=== PATIENT | female | born 1935 | race Asian ===

== ENCOUNTER → 2019-09-26 13:14 | Outpatient (CLI) | payer MEDICARE, OTHER, SELFPAY ==
--- NOTE | 2019-09-26 | DI.RAD.S_ITS ---
PROCEDURE: FL BARIUM SWALLOW W SPEECH INDICATIONS: Dysphagia, unspecified TECHNIQUE: Examination was conducted in conjunction with speech pathology per standard protocol. In the lateral projection, filming was performed of the patient swallowing. AP projection filming may also be performed with patient swallowing. COMPARISON: None. FINDINGS: Function: The oral preparatory phase appears normal, with proper containment. The subsequent oral propulsive phase, pharyngeal phase, and esophageal phase of swallowing also appear normal with all proffered substances. Flash laryngeal penetration with thin liquid barium consistencies. No aspiration identified.. Mild residue and vallecular pooling. There is delayed upper esophageal clearance Morphology: No cricopharyngeal bar is identified. No cervical esophageal webs. No Zenker's diverticulum. No strictures. IMPRESSION: Delayed upper esophageal clearance suggestive of dysmotility which could be better assessed with dedicated esophagram. Flash laryngeal penetration with thin liquid barium consistencies Dictated by: Franck Pollack M.D. on 09/26/2019 at 15:05 Approved by: Franck Pollack M.D. on 09/26/2019 at 15:06
--- NOTE | 2019-09-26 16:12 | ST.SWALLOW ---
Visit Care Team Role Provider Type Kayla Foreman MD Primary Care Provider Physician Specialty: Internal Medicine Address: [address] 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 Jes Max Reason for Referral dysphagia Setting Setting Outpatient Care Patient Information Identification Type Name,Date of Patient History Maged Rhodes was seen for a Modified Barium Swallow Study at the referral of Dr. Max. According to Maged and her , Yoni, Maged has been complaining of solid foods getting stuck in her throat, pointing to the area near the thyroid notch. She also pointed to her stomach area as a place that foods get stuck. Her described Maged as being in pain when foodsd are stuck Subjective Observations Pt was seated in the flouroscopy chair. Directions and instructions were provided to her with gesture assistance to increase comprehension. Maged is Sinhala and reportedly has difficulty understanding and speaking the Monegasque language. Patient Positioning Position View A/P Imaging Lateral View Textures Administered Trials Presented Thin Liquid via Spoon,Thin Liquid via Cup,Pudding Thick Liquid via Spoon,Regular Textures Oral Phase Source: MBSIMP (TM) (C) Bolus Specific Scoring Grid Lip Closure WFL Tongue Control During Bolus Hold WFL Bolus Prep/Mastication WFL A/P Lingual Propulsion Delay Yes: Premature spillage to valeculla and pyriform sinuses . Oral Residue Minimal Impairment Residue Clearing Minimal Impairment Nasal Regurgitation No Additional Oral Phase Observations Pt has an upper partial denture that fits well. She also has missing teeth in her lower arch. OM skills WFL. Dentition in good hygeine Pharyngeal Phase Source: MBSIMP (TM) (C) Bolus Specific Scoring Grid Delayed Initiation of Pharyngeal Swallow Yes: Premature spillage to valeculla and pyriform sinuses . Soft Palate Elevation WFL Tongue Base Strength/Range of Motion Mild Impairment Residue Along the Tongue Base Yes Clearance of Residue Along Tongue Base Mild Impairment Laryngeal Elevation WFL Anterior Hyoid Movement WFL Epiglottic Range of Motion WFL Vallecular Residue Yes Clearance of Vallecular Residue Mild Impairment Laryngeal Vestibular Closure Mild Impairment Pharyngeal Stripping Wave Mild Impairment Pharyngeal Contraction Mild Impairment Posterior Pharyngeal Wall Residue Yes Clearance of Posterior Pharyngeal Wall Minimal Impairment Residue Upper Esophageal Sphincter Opening WFL Residue in the Pyriform Sinuses Yes Clearance of Residue in the Pyriform Mild Impairment Sinuses Esophageal Clearance Upright Position Moderate Impairment Pharyngoesophageal Backflow Observed Yes: Very slow clearance of upper esophagus Additional Pharyngeal Phase Observations Flash penetration was observed into the laryngeal vestibule during consecutive swallows x3 . No residue remained within the vestibule following the consecutive swallows. Mid to lower pharyngeal constriction weak with weak tongue base resulted in pharyngeal residue . Residue cleared with 2-3 subsequent swallows. Hyolaryngeal elevation and excursion WFL A/P View Textures Administered Trials Presented Thin Liquid via Cup A/P View Observations Esophageal Function Slowed Clearing,Poor Motility, Stasis,Narrowing Esophageal Clearance Upright Position Severe Impairment Additional Observations An esophageal scan noted slowed esophageal emptying with the contents remaining within the upper esophagus for minutes. Recommendation for GI assessment. Clinical Impressions Dysphagia Type mild pharyngeal with moderate- severe esophageal dysphagia Findings The findings for oropharyngeal dysphagia indicated residue within the pharynx as well as flash penetration within the vestibule when system stressed by consecutive swallows. These results would be considered normal for a person in their 80s. The pt should be seen by GI specialist relative to the slowed emptying of her esophagus with esophageal stasis. Further assessment recommended. Rehabilitation Potential Fair Patient Appropriate for Therapy No: Therapy not indicated at this time Recommendations Diet Liquids Order Thin Diet Order Dysphagia Mechanical Medication Recommendation As Tolerated Comments Diet texture as per / patient preference Aspiration Precautions Recommended Precautions Upright at 90 Degrees, Alternate Liquids/Solids, Frequent Rest Periods,Small Bites/Sips Additional Precautions One sip at a time. No consecutive swallows Treatment Plan Recommended Referrals Primary Care Physician,GI Consult Compensatory Strategies Recommendations Sitting Upright (90 deg), Liquids from Cup,Small Bites and Sips,Alternate Liquids/ Solids Additional Compensatory Strategies Remain upright for minimum of Recommended 30 minutes to allow gravity to assist flow
== END ==
PROVIDERS: PCP Internal Medicine; Referring Provider Surgery; Visit Provider Surgery
DX: R13.10 Dysphagia, unspecified (principal)
CPT/HCPCS: 74230; 92611

== ENCOUNTER 2021-04-06 22:57 | Observation (INO) | payer MEDICARE, OTHER, SELFPAY ==
--- NOTE | 2021-04-06 22:59 | DI.RAD.S_ITS ---
PROCEDURE: XR CHEST 1V INDICATIONS: Possible stroke TECHNIQUE: One view of the chest was acquired. COMPARISON: None. FINDINGS: Surgical changes and devices: None. Lungs and pleura: Lungs are clear. No pleural effusions or pneumothorax. Mediastinum: Mediastinal contours appear normal. Heart size is normal. The is tortuous. Bones and chest wall: No suspicious bony lesions. Overlying soft tissues appear unremarkable. IMPRESSION: No acute abnormality Dictated by: Sacha Ren M.D. on 04/06/2021 at 23:30 Approved by: Sacha Ren M.D. on 04/06/2021 at 23:32
[2021-04-06 23:00] VITALS: BMI 20.5
--- NOTE | 2021-04-06 23:03 | DI.CT.S_ITS ---
PROCEDURE: CT STROKE INDICATIONS: acute Left side weakness 21:50 TECHNIQUE: Noncontrast 4.5 mm thick angled axial sections acquired from the foramen magnum to the vertex, with coronal reformats. For radiation dose reduction, the following was used: automated exposure control, adjustment of mA and/or kV according to patient size. COMPARISON: None. FINDINGS: Image quality: Excellent. CSF spaces: Basal cisterns are patent. No extra-axial fluid collections. The ventricles are symmetric in size and shape. Brain: No intracranial bleeds or masses. There is cerebral volume loss for age, with resultant ventricular and sulcal prominence. There are periventricular and deep white matter chronic small vessel ischemic changes. There is intracranial internal carotid artery atherosclerosis. Skull and face: Calvarium and visualized facial bones appear intact, without suspicious lesions. Sinuses: Visualized sinuses and mastoids are clear. IMPRESSION: No acute intracranial abnormality. This study fulfills neurological imaging criteria for inclusion or exclusion of acute stroke therapies based on available published neurological guidelines. Dictated by: Sacha Ren M.D. on 04/06/2021 at 23:10 Approved by: Sacha Ren M.D. on 04/06/2021 at 23:11
--- NOTE | 2021-04-06 23:03 | DI.CT.S_ITS ---
PROCEDURE: CT ANGIO HEAD AND NECK INDICATIONS: acute Left side weakness 21:50 TECHNIQUE: Pre-contrast 4.5 mm thick sections acquired from the foramen magnum to the vertex. After the administration of intravenous contrast, 1 mm thick sections acquired from the aortic arch through the [place]. Post-contrast 4.5 mm thick sections then re-acquired from the foramen magnum to the vertex. 3-dimensional nsmjnom-egsarajwn-[id number] (MIP) and/or volume rendering reformats were acquired of the central intracranial vasculature and neck separately. COMPARISON: None. FINDINGS: Image quality: Excellent. BRAIN: CSF spaces: Ventricles are normal in size and shape. Basal cisterns are patent. No extra-axial fluid collections. Brain: No midline shift. No intracranial bleeds or masses. Naidu-white matter interface appears intact. Skull and face: Calvarium and facial bones appear intact, without suspicious lesions. Orbits appear normal. Sinuses: Sinuses and mastoids are clear. HEAD CT ANGIOGRAPHY: Anterior circulation: Intracranial internal carotid arteries have minimal atherosclerotic calcifications and are normal in size and flow. The flow within the paired anterior cerebral arteries is normal and symmetric. The flow within the middle cerebral arteries is normal and symmetric. The anterior communicating artery is seen. No aneurysms are seen. Posterior circulation: Visualized portions of the vertebral arteries demonstrate normal caliber, and join to form a normal appearing basilar artery. Flow within the posterior cerebral arteries is normal and symmetric. No aneurysms are seen. NECK CT ANGIOGRAPHY: Carotid system: The great vessels demonstrate a conventional anatomy as they arise from the aortic arch. The origins of the common carotid arteries appear patent. The common carotid arteries demonstrate normal caliber and courses. The bifurcation regions are both widely patent. The internal carotid arteries demonstrate normal calibers and courses. Posterior circulation: The origins of the vertebral arteries both appear widely patent. The more superior extracranial portions of both vertebral arteries also demonstrate normal courses and calibers. They join to form a normal appearing basilar artery. Soft tissues: Visualized neck soft tissues demonstrate no suspicious abnormalities. Bones: No suspicious bony lesions. Visualized cervical spine appears normally aligned. IMPRESSION: 1. Normal CTA head. 2. Normal CTA neck. 3. No acute intracranial abnormality. Any quantitative measurements of stenosis were performed using NASCET criteria. Dictated by: Sacha Ren M.D. on 04/06/2021 at 23:16 Approved by: Sacha Ren M.D. on 04/06/2021 at 23:22
[2021-04-06 23:22] VITALS: PULSE 71; RESP 15; O2SAT 100
[2021-04-06 23:30] VITALS: BP 188/94; PULSE 70; RESP 15; O2SAT 100
--- NOTE | 2021-04-06 23:35 | ED.GENADULT ---
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 She has a history of a stroke in 2013 with left-sided deficits all of which resolved completely. She has chronic lower extremity edema, reflux, hyperlipidemia, hypertension who presents via EMS with complaints of stroke-like symptoms started abruptly at 9:50 p.m.. According to her she was at her usual baseline had taken 10 mg of Ambien(this was the 1st time she has taken this medication) and then was enjoying some ice cream when she began slurring her speech, had significant right-sided facial paralysis, began dropping the ice cream bowl out of her right hand and was unable to lift up her right leg. 911 was called and she was brought to the emergency department. On arrival in the emergency department code stroke was called she was taken immediately to the CT scanner her initial exam showed slight improvement of the facial droop and partial paresthesia right side. Language barrier has been an issue and Frisian language line as well as her were both used to facilitate interpretation as best possible. Her notes that she has not had fevers, cough, chills, chest pain, palpitations, vomiting, diarrhea recently. She has had the cognitive deficits in the leg which confusion and was recently seen by her neurologist with a brain MRI that showed only chronic minor ischemic changes done 3 weeks ago. Related Data Allergies Allergy/AdvReac Type Severity Reaction Status Date / Time doxycycline Allergy Verified 04/06/21 23:37 Review of Systems Review of Systems Narrative: Remainder of complete review of systems is otherwise unremarkable except for that included in the HPI. Patient History Medical History Bilateral lower extremity edema Dysphagia Hyperlipidemia Hypertension Memory loss Parkinsons disease Stroke Social History household members: spouse Smoking Status: Never smoker alcohol intake: never Exam Initial Vital Signs Initial Vital Signs: Vital Signs Pulse Rate 71 04/06/21 23:22 Respiratory Rate 15 04/06/21 23:22 Pulse Oximetry 100 04/06/21 23:22 General: Older-appearing woman, somewhat somnolent, right-sided facial droop HEENT: Moist mucous membranes, normal sclera with reactive pupils, Neck: No JVD, supple Respiratory: Lungs are clear to auscultation, no wheezing no rales no rhonchi. Full and symmetrical air movement Cardiac: Regular rate and rhythm no murmurs no bruits Abdomen: Soft, nontender, good bowel tones, no flank pain Skin: Warm and dry, no rashes Neurologic: Globally weak, difficulty in opening eyes pupils are equal and reactive. Slight right arm weakness that does seem to be improving. Right-sided facial droop. No sensory abnormalities. Minor dysarthria and aphasia. NIH score = 5 Extremities: No trauma, well perfused, 1+ bilateral lower extremity edema Psych: Slightly confused, trying to be cooperative, non fluent speech Course Orders Ordered: ED Orders 04/06/21 22:59 XR chest 1V Stat 04/06/21 23:[address] angio head and neck Stat Urine Drug Screen, Rapid Stat 04/06/21 23:15 Complete Blood Count AUTO DIFF Stat Comprehensive Metabolic Panel Stat Partial Thromboplastin Time Stat Prothrombin Time INR Stat Troponin & CK Cardiac Panel Stat 04/06/21 23:39 EKG-12 Lead Stat 04/06/21 23:55 COVID19 -Nasal swab/Pre-Proc Stat Aspirin (Aspirin Ec 81 Mg Tablet) 81 mg PO DAILY [facility] Atorvastatin Calcium (Atorvastatin 20 Mg Tablet) 80 mg PO BEDTIME [facility] Clopidogrel Bisulfate (Clopidogrel 75 Mg Tablet) 75 mg PO DAILY [facility] Enoxaparin Sodium (Enoxaparin 30 Mg/0.3 Ml Syringe) 30 mg SUBCUT DAILY [facility] Sodium Chloride (Normal Saline 0.9%) 1,000 mls @ 150 mls/hr IV CONT IDA Last Infusion: 04/07/21 00:40 Dose: 150 mls/hr Documented by: Admin: 04/07/21 00:02 Dose: 150 mls/hr Documented by: KRISTAN Sodium Chloride (Normal Saline 0.9%) 1,000 mls @ 60 mls/hr IV CONT [facility] Naloxone HCl (Naloxone 0.4 Mg/Ml Vial) 0.2 mg IV Q2MIN PRN PRN Reason: Opiate Reversal Ondansetron HCl (Ondansetron 4 Mg/2 Ml Inj) 4 mg IV Q8HR PRN PRN Reason: Nausea And Vomiting Vital Signs Vital signs: Vital Signs - 8 hr 04/06/21 23:22 04/06/21 23:30 04/07/21 00:00 Temperature Pulse Rate 71 70 68 Respiratory Rate 15 15 14 Blood Pressure 188/94 H Pulse Oximetry 100 100 100 04/07/21 00:05 Temperature 97.9 F Pulse Rate Respiratory Rate Blood Pressure Pulse Oximetry Medical Decision Making Lab Data Result diagrams: 04/06/21 23:15 04/06/21 23:15 Labs: Lab Results 04/06/21 04/06/21 04/06/21 Range/Units 23:15 23:15 23:15 WBC 5.0 (4.5-11.0) X10^3/uL RBC 3.27 L (4.0-5.2) X10^6/uL Hgb 10.8 L (12.0-16.0) g/dL Hct 32.3 L (36-46) % MCV 98.9 (80-100) fL MCH 33.2 (26-34) PG MCHC 33.5 (30-36) % RDW 13.6 (11.6-14.8) % Plt Count 195 (150-400) X10^3/uL Neut % (Auto) 45.7 L (50-75) % Lymph % (Auto) 44.2 H (25-40) % [place] % (Auto) 9.0 (3-14) % Eos % (Auto) 0.6 L (2-4) % Baso % (Auto) 0.5 (0-2) % Neut # (Auto) 2300 (9241-5491) /uL Lymph # (Auto) 2200 (1651-7812) /uL [place] # (Auto) 500 (0-900) /uL Eos # (Auto) 0 (0-450) /uL Baso # (Auto) 0 (0-100) /uL PT 10.6 (10.1-12.7) SECONDS INR 1.0 (0.9-1.3) APTT 31 (26.4-36.2) SECONDS Sodium 139 (137-145) mmol/L Potassium 3.9 (3.4-5.1) mmol/L Chloride 104 (98-107) mmol/L Carbon Dioxide 36 H (22-32) mmol/L BUN 29 H (7-17) mg/dL Creatinine 1.17 H (0.52-1.04) mg/dL Estimated GFR 44.2 L (>60) mL/min BUN/Creatinine Ratio 24.8 H (6-22) Glucose 93 (80-110) mg/dL Calcium 9.2 (8.4-10.2) mg/dL Magnesium (1.6-2.3) mg/dL Total Bilirubin 0.4 (0.2-1.3) mg/dL AST 23 (14-36) IU/L ALT < 4 (<35) IU/L Alkaline Phosphatase 88 (38-126) U/L Total Creatine Kinase 69 (30-135) U/L CK-MB (CK-2) TNP CK-MB (CK-2) Rel Index TNP Troponin I < 0.012 (0.01-0.034) ng/mL Total Protein 7.3 (6.3-8.2) g/dL Albumin 4.0 (3.5-5.0) g/dL Globulin 3.3 (1.7-4.1) g/dL Albumin/Globulin Ratio 1.2 (1.0-2.8) SARS-CoV-2 (PCR) (Negative) 04/06/21 04/06/21 Range/Units 23:15 23:55 WBC (4.5-11.0) X10^3/uL RBC (4.0-5.2) X10^6/uL Hgb (12.0-16.0) g/dL Hct (36-46) % MCV (80-100) fL MCH (26-34) PG MCHC (30-36) % RDW (11.6-14.8) % Plt Count (150-400) X10^3/uL Neut % (Auto) (50-75) % Lymph % (Auto) (25-40) % [place] % (Auto) (3-14) % Eos % (Auto) (2-4) % Baso % (Auto) (0-2) % Neut # (Auto) (3622-1218) /uL Lymph # (Auto) (1284-7927) /uL [place] # (Auto) (0-900) /uL Eos # (Auto) (0-450) /uL Baso # (Auto) (0-100) /uL PT (10.1-12.7) SECONDS INR (0.9-1.3) APTT (26.4-36.2) SECONDS Sodium (137-145) mmol/L Potassium (3.4-5.1) mmol/L Chloride (98-107) mmol/L Carbon Dioxide (22-32) mmol/L BUN (7-17) mg/dL Creatinine (0.52-1.04) mg/dL Estimated GFR (>60) mL/min BUN/Creatinine Ratio (6-22) Glucose (80-110) mg/dL Calcium (8.4-10.2) mg/dL Magnesium 2.4 H (1.6-2.3) mg/dL Total Bilirubin (0.2-1.3) mg/dL AST (14-36) IU/L ALT (<35) IU/L Alkaline Phosphatase (38-126) U/L Total Creatine Kinase (30-135) U/L CK-MB (CK-2) CK-MB (CK-2) Rel Index Troponin I (0.01-0.034) ng/mL Total Protein (6.3-8.2) g/dL Albumin (3.5-5.0) g/dL Globulin (1.7-4.1) g/dL Albumin/Globulin Ratio (1.0-2.8) SARS-CoV-2 (PCR) Negative (Negative) Point of Care Testing Glucose POC 120 Point of care testing: Point of Care Testing Glucose POC 120 Imaging Data Head neck CTA: Radiologist's Impression: FINDINGS:? Image quality:? Excellent.? ? BRAIN:? CSF spaces:? Ventricles are normal in size and shape.? Basal cisterns are patent.? No extra-axial fluid collections.? ? Brain:? No midline shift.? No intracranial bleeds or masses.? Naidu-white matter interface appears intact.? ? Skull and face:? Calvarium and facial bones appear intact, without suspicious lesions.? Orbits appear normal.? ? Sinuses:? Sinuses and mastoids are clear.? ? HEAD CT ANGIOGRAPHY:? Anterior circulation:? Intracranial internal carotid arteries have minimal atherosclerotic calcifications and are normal in size and flow.? The flow within the paired anterior cerebral arteries is normal and symmetric.? The flow within the middle cerebral arteries is normal and symmetric.? The anterior communicating artery is seen.? No aneurysms are seen.? ? Posterior circulation:? Visualized portions of the vertebral arteries demonstrate normal caliber, and join to form a normal appearing basilar artery.? Flow within the posterior cerebral arteries is normal and symmetric.? No aneurysms are seen.? ? NECK CT ANGIOGRAPHY:? Carotid system:? The great vessels demonstrate a conventional anatomy as they arise from the aortic arch.? The origins of the common carotid arteries appear patent.? The common carotid arteries demonstrate normal caliber and courses.? The bifurcation regions are both widely patent.? The internal carotid arteries demonstrate normal calibers and courses.? ? Posterior circulation:? The origins of the vertebral arteries both appear widely patent.? The more superior extracranial portions of both vertebral arteries also demonstrate normal courses and calibers.? They join to form a normal appearing basilar artery.? ? Soft tissues:? Visualized neck soft tissues demonstrate no suspicious abnormalities.? ? Bones:? No suspicious bony lesions.? Visualized cervical spine appears normally aligned.? IMPRESSION:? 1. Normal CTA head. 2. Normal CTA neck. 3. No acute intracranial abnormality.? ? Any quantitative measurements of stenosis were performed using NASCET criteria.? ? ? Dictated by: Sacha Ren M.D. on 04/06/2021 at 23:16 ? ? CT scan - head: Radiologist's Impression: FINDINGS:? Image quality:? Excellent.? ? CSF spaces:? Basal cisterns are patent.? No extra-axial fluid collections.? The ventricles are symmetric in size and shape.? ? Brain:? No intracranial bleeds or masses.? There is cerebral volume loss for age, with resultant ventricular and sulcal prominence.? There are periventricular and deep white matter chronic small vessel ischemic changes.? There is intracranial internal carotid artery atherosclerosis.? ? Skull and face:? Calvarium and visualized facial bones appear intact, without suspicious lesions.? ? Sinuses:? Visualized sinuses and mastoids are clear.? ? IMPRESSION:? No acute intracranial abnormality. ? This study fulfills neurological imaging criteria for inclusion or exclusion of acute stroke therapies based on available published neurological guidelines.? ? ? Dictated by: Sacha Ren M.D. on 04/06/2021 at 23:10 ? ? Chest x-ray: Radiologist's Impression: FINDINGS:? ? Surgical changes and devices:? None.? ? Lungs and pleura:? Lungs are clear.? No pleural effusions or pneumothorax.? ? Mediastinum:? Mediastinal contours appear normal.? Heart size is normal.? The is tortuous. ? Bones and chest wall:? No suspicious bony lesions.? Overlying soft tissues appear unremarkable.? ? IMPRESSION:? No acute abnormality ? ? Dictated by: Sacha Ren M.D. on 04/06/2021 at 23:30 ? ? ECG Data Interpretation: Sinus rhythm at a rate of 66 Normal axis, normal intervals No acute ischemic changes MDM Narrative Medical decision making narrative: 85-year-old woman presents with what appears to be at least a TIA or a stroke affecting her right side with right-sided facial paralysis and right-sided hemiparesis without sensory deficits. The hemiparesis does seem to be improving however the facial droop is not. She has cognitive issues and Parkinson's disease at baseline. She has been having more issues confusing the for language is with which she was fluent at 1 point in is basically back to just chorea in. Frisian freelance interpreter/translator was used for neurologic exam. CT and CTA are unremarkable. As symptoms are improving she is not a tPA candidate With the continued right facial droop she will be admitted for further stroke evaluation. Again, with improving symptoms she is not a tPA candidate It is of note that she did take 10 mg of Ambien 10 minutes prior to symptoms starting however I think that this is not the cause of her stroke. It may be exacerbating some of the speech fluency issues but certainly is not causing the significant facial droop or right-sided weakness. Care is reviewed with the hospitalist and she has accepted for admission. Discharge Plan Departure Patient Disposition: Admitted As Inpatient Clinical Impression: Stroke Admit Date/Time: 04/07/21 00:11 Admit Provider: Romina Stephens
[2021-04-06 23:46] LABS: Add Manual Diff / Slide Review NO; Basophils Absolute Auto 0 /uL (0-100); Basophils Percent Auto 0.5 % (0-2); Eosinophils Absolute Auto 0 /uL (0-450); Eosinophils Percent Auto 0.6 % (2-4); Hematocrit 32.3 % (36-46); Hemoglobin 10.8 g/dL (12.0-16.0); Lymphocytes Absolute Auto 2200 /uL (1100-4500); Lymphocytes Percent Auto 44.2 % (25-40); Mean Corpuscular HGB Conc 33.5 % (30-36); Mean Corpuscular Hemoglobin 33.2 PG (26-34); Mean Corpuscular Volume 98.9 fL (80-100); Monocytes Absolute Auto 500 /uL (0-900); Neutrophils Absolute Auto 2300 /uL (1500-7000); Neutrophils Percent Auto 45.7 % (50-75); Platelet Count 195 X10^3/uL (150-400); Red Blood Cell Count 3.27 X10^6/uL (4.0-5.2); Red Cell Distribution Width 13.6 % (11.6-14.8)
[2021-04-06 23:53] LABS: Prothrombin Time 10.6 SECONDS (10.1-12.7)
[2021-04-06 23:55] LABS: PTT Partial Thromboplastin Tim 31 SECONDS (26.4-36.2)
[2021-04-06 23:57] LABS: Albumin Globulin Ratio 1.2 (1.0-2.8); Alkaline Phosphatase 88 U/L (38-126); Aspartate Aminotransferase 23 IU/L (14-36); BUN Creatinine Ratio 24.8 (6-22); Bilirubin Total 0.4 mg/dL (0.2-1.3); Blood Urea Nitrogen 29 mg/dL (7-17); Calcium 9.2 mg/dL (8.4-10.2); Carbon Dioxide 36 mmol/L (22-32); Chloride 104 mmol/L (98-107); Creatine Kinase 69 U/L (30-135); Estimated Glomerular Filt Rate 44.2 mL/min (>60); Globulin 3.3 g/dL (1.7-4.1); Glucose 93 mg/dL (80-110); HEMOLYSIS < 15 (0-50); Potassium 3.9 mmol/L (3.4-5.1); Sodium 139 mmol/L (137-145); Total Protein 7.3 g/dL (6.3-8.2)
[2021-04-07] VITALS (8 sets, daily range): BP systolic 159–180; BP diastolic 80–90; PULSE 68–89; RESP 12–19; TEMP 36.6; O2SAT 96–100; BMI 20.5
[2021-04-07] MEDS: SODIUM CHLORIDE 0.9% 1,000 ML 150 ML IV (00:02)
[2021-04-07 00:09] LABS: Troponin I < 0.012 ng/mL (0.01-0.034)
[2021-04-07 00:15] LABS: Alanine Aminotransferase < 4 IU/L (<35)
[2021-04-07 00:22] LABS: COVID19 -Nasal RAPID Negative (Negative)
[2021-04-07 00:52] LABS: Magnesium 2.4 mg/dL (1.6-2.3)
[2021-04-07 01:25] LABS: UR Morphine/Opiate cutoff 300 Negative (Negative); Ur Creatinine Normal (Normal); Ur Specific Gravity Normal (Normal); Urine Amphetamines Negative (Negative); Urine Barbiturates Negative (Negative); Urine Benzodiazepines Negative (Negative); Urine Cocaine Negative (Negative); Urine MDMA Negative (Negative); Urine Methadone Negative (Negative); Urine Methamphetamines Negative (Negative); Urine Phencyclidine Negative (Negative); Urine Tetrahydrocannabinol Negative (Negative); Urine Tricyclic Antidepressant Negative (Negative); Urine pH Normal (Normal)
[2021-04-07 01:26] LABS: Urine Oxycodone Negative (Negative)
[2021-04-07] MEDS: SODIUM CHLORIDE 0.9% 1,000 ML 60 ML IV (01:40)
[2021-04-07 02:03] LABS: Bilirubin Urine UA NEGATIVE (NEGATIVE); Color Urine UA YELLOW; Glucose Urine UA NEGATIVE (Negative); Ketones Urine UA NEGATIVE (NEGATIVE); Leukocyte Esterase Urine UA NEGATIVE (NEGATIVE); Nitrite Urine UA NEGATIVE (Negative); Occult Blood Urine UA 1+ (Negative); Protein Urine UA NEGATIVE (Negative); Specific Gravity Urine UA 1.015 (1.000-1.035); Urobilinogen Urine UA 0.2 E.U./dL (0.2)
[2021-04-07 02:06] LABS: pH Urine UA 7.5 (4.5-8.0)
[2021-04-07 02:07] LABS: Appearance Urine UA SL CLOUDY; Bacteria Urine Many (>30); RBC Urine 0-1/HPF (0-5/HPF); Squamous Epithelial Cell Urine 1-5 /HPF (0-5/HPF); WBC Urine None Seen (0-5/HPF)
[2021-04-07 02:08] LABS: Amorphous Sediment Urine 1+; Culture Indicated Urine Cult Not Indicated
--- NOTE | 2021-04-07 03:59 | PM.HP.1 ---
History of Present Illness History of Present Illness Date Patient Seen: 04/07/21 Time Patient Seen: 00:38 Chief complaint: Stroke Narrative: Maged Rhodes is a 85-year-old woman who a history of a stroke x 2, one in 2013 with left-sided deficits all of which resolved completely.? She has chronic lower extremity edema, reflux, hyperlipidemia, hypertension, PSP parkinsonian syndrome who presented to the ED via EMS with complaints of stroke-like symptoms started abruptly at 9:50 p.m. According to her while enjoying some ice cream with him she began slurring her speech, had significant right-sided facial paralysis, began dropping the ice cream bowl out of her right hand and was unable to lift up her right leg, and was unresponsive to him.? Upon initial exam in ED she had improvement of the facial droop and partial paresthesia right side.?The patient had been multilingual will but do to her advanced Parkinson's/PSP she now speaks mostly in Mongolian, which her spouse does not speak, she will often mix languages. Mongolian language line as well as her were both used to facilitate interpretation due to Language barrier. Her notes that she has not had fevers, cough, chills, chest pain, palpitations, vomiting, diarrhea, recent illness injury or trauma.? She has had worsening cognitive deficits and confusion and was recently seen by her neurologist and had a brain MRI that showed only chronic minor ischemic changes, 3 weeks ago. Upon admit to the floor the patient's spouse notes that all of her symptoms have resolved and she is back at baseline. It should be noted that the patient does have at baseline secondary to her PSP parkinsonian syndrome baseline tremors. Patient's vitals upon admit she is slightly hypertensive temp 98.8?, BP 188/94, HR 68, RR 14 O2 saturation 100% on room air. Patient's H&H 10.8/32.3, BUN 29, bicarb 36, creatinine 1.17, GFR 44.2, troponin is negative patient had a NIH of 5 in ED, is an NIH of 0 upon admit. Patient's CTA of head neck were negative for any acute intracranial or carotid processes. Patient's brain CT is negative for any acute intracranial processes, chest x-ray is negative for any acute cardiopulmonary processes. I did request records from [facility]. The patient is resting comfortably in bed denies any pain discomfort any issues is alert to self and spouse, but does not appear to comprehend the situation. Patient admitted for stroke. Patient History Medical History (Updated 04/07/21 @ 05:49 by ASHLEY Batres-KAZ) Bilateral lower extremity edema Dysphagia Hyperlipidemia Hypertension Memory loss Parkinsons disease PSP (progressive supranuclear palsy) Stroke Surgical History (Updated 04/07/21 @ 05:49 by ASHLEY Batres-KAZ) History of back surgery History of hysterectomy Family & Social History Family History Daughter Cancer Social History: household members spouse Prior Living Arrangements House Safety & Behavioral: Feels Safe in Current Yes Environment Been Physically Hurt or No Threatened By a Person Suicidal Ideation Description None Suicide Plan Description No Plan Tobacco & Substance use: Smoking Status Never smoker alcohol intake never Substance Use Type does not use Meds Home Medications and Allergies Home Medications Medication Instructions Recorded Confirmed Type aspirin 25 mg-dipyridamole 200 mg 25 - 200 cap PO BID 04/07/21 04/07/21 History capsule,ext.release 12 hr multiphase carbidopa 25 mg-levodopa 100 mg 25 - 100 tab PO QID 04/07/21 04/07/21 History tablet (Sinemet) famotidine 20 mg tablet 20 mg PO DAILY 04/07/21 04/07/21 History furosemide 20 mg tablet (Lasix) 20 mg PO DAILY 04/07/21 04/07/21 History gabapentin 100 mg capsule 100 mg PO TID 04/07/21 04/07/21 History linaclotide 290 mcg capsule 290 mcg PO DAILY 04/07/21 04/07/21 History (Linzess) metoprolol succinate 25 mg 25 mg PO DAILY 04/07/21 04/07/21 History tablet,extended release 24 hr montelukast 10 mg tablet 10 mg PO DAILY 04/07/21 04/07/21 History pantoprazole 40 mg tablet,delayed 40 mg PO BID 04/07/21 04/07/21 History release (Protonix) polyethylene glycol 3350 17 gram 17 g PO DAILY 04/07/21 04/07/21 History oral powder packet (Miralax) rasagiline 0.5 mg tablet (Azilect) 0.5 mg PO DAILY 04/07/21 04/07/21 History simvastatin 40 mg tablet 40 mg PO DAILY 04/07/21 04/07/21 History Allergies Allergy/AdvReac Type Severity Reaction Status Date / Time doxycycline Allergy Verified 04/06/21 23:37 Review of Systems Review of Systems Narrative: All 12 point systems reviewed with the patient and are negative except otherwise documented. was at the bedside and contributed to HPI, ROS, and history. Exam Vital Signs (past 8 hours): - 04/06/21 23:22 04/06/21 23:30 04/07/21 00:00 Temperature Pulse Rate 71 70 68 Respiratory Rate 15 15 14 Blood Pressure 188/94 H Pulse Oximetry 100 100 100 04/07/21 00:05 04/07/21 00:31 04/07/21 01:07 Temperature 97.9 F 97.9 F Pulse Rate 73 Respiratory Rate 19 Blood Pressure 180/80 H Pulse Oximetry 99 99 Oxygen Delivery Method Room Air Oxygen Flow Rate 0 Narrative Exam Narrative: General: Patient is a well-developed, well-nourished elderly charming small framed female, in no distress at this time. HEENT: Normocephalic, atraumatic, extraocular muscles intact, oral pharynx is clear and mucous membranes are moist. Neck is supple and symmetric, trachea is midline, no adenopathy, no thyroid enlargement, nontender, no masses palpated. Negative for JVD Chest: Normal AP diameter and contour without kyphoscoliosis, no nasal flaring, retractions, or tachypneic labored Lungs: Auscultation of all lung wooten are clear without adventitious sounds, wheezes, rhonchi, or rales. Cardio: S1 & S2 with regular rate and rhythm without murmur, rubs, or gallops, no carotid bruit, no cardiac pulsations present. Abdomen: Soft nontender, negative for organomegaly, or masses. Bowel sounds are present in all 4 quadrants without guarding or rebound, no CVA tenderness. Musculoskeletal: Muscle strength and tone are equal, no deformity, crepitus, effusions, cyanosis, or clubbing present. Bilateral +1 nonpitting edema Full range of motion intact radial and pedal pulses are normal. Skin: Warm dry and intact without rashes, ulcerations or petechiae. Neuro: Alert and orientated to self & spouse only, sensation to touch grossly intact, no gross deficits noted of cranial nerves. Psych: Patient has a well-kept appearance, flat affect, impaired cognitive function parkinsonian syndrome PSP. Objective Labs Result Diagrams: 04/06/21 23:15 04/06/21 23:15 Labs: Laboratory Results - last 24 hr 04/06/21 04/06/21 04/06/21 23:15 23:15 23:15 WBC 5.0 RBC 3.27 L Hgb 10.8 L Hct 32.3 L MCV 98.9 MCH 33.2 MCHC 33.5 RDW 13.6 Plt Count 195 Neut % (Auto) 45.7 L Lymph % (Auto) 44.2 H [place] % (Auto) 9.0 Eos % (Auto) 0.6 L Baso % (Auto) 0.5 Neut # (Auto) 2300 Lymph # (Auto) 2200 [place] # (Auto) 500 Eos # (Auto) 0 Baso # (Auto) 0 PT 10.6 INR 1.0 APTT 31 Sodium 139 Potassium 3.9 Chloride 104 Carbon Dioxide 36 H BUN 29 H Creatinine 1.17 H Estimated GFR 44.2 L BUN/Creatinine Ratio 24.8 H Glucose 93 Calcium 9.2 Magnesium Total Bilirubin 0.4 AST 23 ALT < 4 Alkaline Phosphatase 88 Total Creatine Kinase 69 CK-MB (CK-2) TNP CK-MB (CK-2) Rel Index TNP Troponin I < 0.012 Total Protein 7.3 Albumin 4.0 Globulin 3.3 Albumin/Globulin Ratio 1.2 Urine Color Urine Appearance Urine pH Ur Specific [place] Urine Protein Urine Glucose (UA) Urine Ketones Urine Occult Blood Urine Nitrate Urine Bilirubin Urine Urobilinogen Ur Leukocyte Esterase Urine RBC Urine WBC Ur Squamous Epith Cells Amorphous Sediment Urine Bacteria Ur Culture Indicated? U Opiates 300ng/mL cut Ur Oxycodone Screen Urine Methadone Screen Ur Barbiturates Screen U Tricyclic Antidepress Ur Phencyclidine Scrn Ur Amphetamines Screen U Methamphetamines Scrn Ur MDMA Scrn (Ecstasy) U Benzodiazepines Scrn Urine Cocaine Screen U Marijuana (THC) Screen SARS-CoV-2 (PCR) 04/06/21 04/06/21 04/07/21 23:15 23:55 01:15 WBC RBC Hgb Hct MCV MCH MCHC RDW Plt Count Neut % (Auto) Lymph % (Auto) [place] % (Auto) Eos % (Auto) Baso % (Auto) Neut # (Auto) Lymph # (Auto) [place] # (Auto) Eos # (Auto) Baso # (Auto) PT INR APTT Sodium Potassium Chloride Carbon Dioxide BUN Creatinine Estimated GFR BUN/Creatinine Ratio Glucose Calcium Magnesium 2.4 H Total Bilirubin AST ALT Alkaline Phosphatase Total Creatine Kinase CK-MB (CK-2) CK-MB (CK-2) Rel Index Troponin I Total Protein Albumin Globulin Albumin/Globulin Ratio Urine Color Urine Appearance Urine pH Ur Specific [place] Urine Protein Urine Glucose (UA) Urine Ketones Urine Occult Blood Urine Nitrate Urine Bilirubin Urine Urobilinogen Ur Leukocyte Esterase Urine RBC Urine WBC Ur Squamous Epith Cells Amorphous Sediment Urine Bacteria Ur Culture Indicated? U Opiates 300ng/mL cut Negative Ur Oxycodone Screen Negative Urine Methadone Screen Negative Ur Barbiturates Screen Negative U Tricyclic Antidepress Negative Ur Phencyclidine Scrn Negative Ur Amphetamines Screen Negative U Methamphetamines Scrn Negative Ur MDMA Scrn (Ecstasy) Negative U Benzodiazepines Scrn Negative Urine Cocaine Screen Negative U Marijuana (THC) Screen Negative SARS-CoV-2 (PCR) Negative 04/07/21 01:15 WBC RBC Hgb Hct MCV MCH MCHC RDW Plt Count Neut % (Auto) Lymph % (Auto) [place] % (Auto) Eos % (Auto) Baso % (Auto) Neut # (Auto) Lymph # (Auto) [place] # (Auto) Eos # (Auto) Baso # (Auto) PT INR APTT Sodium Potassium Chloride Carbon Dioxide BUN Creatinine Estimated GFR BUN/Creatinine Ratio Glucose Calcium Magnesium Total Bilirubin AST ALT Alkaline Phosphatase Total Creatine Kinase CK-MB (CK-2) CK-MB (CK-2) Rel Index Troponin I Total Protein Albumin Globulin Albumin/Globulin Ratio Urine Color Yellow Urine Appearance Sl cloudy Urine pH 7.5 Ur Specific [place] 1.015 Urine Protein Negative Urine Glucose (UA) Negative Urine Ketones Negative Urine Occult Blood 1+ H Urine Nitrate Negative Urine Bilirubin Negative Urine Urobilinogen 0.2 Ur Leukocyte Esterase Negative Urine RBC 0-1/hpf Urine WBC None seen Ur Squamous Epith Cells 1-5 /hpf Amorphous Sediment 1+ Urine Bacteria Many (>30) H Ur Culture Indicated? Cult not indicated U Opiates 300ng/mL cut Ur Oxycodone Screen Urine Methadone Screen Ur Barbiturates Screen U Tricyclic Antidepress Ur Phencyclidine Scrn Ur Amphetamines Screen U Methamphetamines Scrn Ur MDMA Scrn (Ecstasy) U Benzodiazepines Scrn Urine Cocaine Screen U Marijuana (THC) Screen SARS-CoV-2 (PCR) Assessment & Plan Assessment & Plan narrative: Maged Rhodes is a 85-year-old woman who a history of a stroke x 2, one in 2013 with left-sided deficits all of which resolved completely.? She has chronic lower extremity edema, reflux, hyperlipidemia, hypertension, PSP parkinsonian syndrome who presented to the ED via EMS with complaints of stroke-like symptoms right-sided facial droop, right arm and right leg weakness, and worsened coginitive impairment unresponsive to spouse. Patient is admitted for stroke, MRI tomorrow. Patient now speaks mostly in Mongolian, which her spouse does not speak, she will often mix languages. Mongolian language line as well as her were both used to facilitate interpretation due to Language barrier. 1. Neurological deficit (right-sided facial droop, slurred speech, cognitive impairment, right arm and right leg weakness), acute, transient, CVA, present on admission -History of CVA x2 -patient's symptoms had resolved upon admit to the floor. -bedside swallow ordered, NPO until cleared -MR ordered for tomorrow -Lipitor, Plavix, ASA -patient on fall precautions, aspiration precautions -pt to resume aggrenox on d/c -referral for outpatient follow-up with the patient's neurologist -patient's BUN 29 bicarb 36, creatinine 1.17-unsure if this is baseline or MANDO-mild rehydration NS at 60 cc/HR overnight -requested last office visit note from [facility] neurology 2. PSP (parkinsonian syndrome), acute on chronic, resulting in cognitive deficit, language barrier, and malnutrition as evidence by BMI of 19.4, acute on chronic, present on admission -utilized Mongolian language line -spouse is an excellent caregiver and historian -continue sinamet azilect, Ativan as needed, gabapentin, melatonin -spouse has been working with Neurology and dietary to improve patient nutritional status. 3. Essential hypertension, acute on chronic, present on admission -continue metoprolol 4. Chronic peripheral edema, chronic, present on admission -continue Lasix, potassium 5. Hyperlipidemia, chronic, present on admission -lipid panel ordered -continue Zocor 6. GERD, chronic, present on admission -continue Protonix Code status: DNR Surrogate decision maker: Spouse Yoni Rhodes COVID PCR: Negative COVID vaccination: Unknown DVT/VTE prophylaxis: Lovenox 30 and SCDs Disposition: Patient admitted for observation expected length of stay less than 2 midnights. I have utilized all available immediate resources to obtain, update, or review the patient's current medications. I confirmed that the patient's advanced care plan is present, Code status is documented and/or surrogate decision maker is listed in the patient's medical record. Time Spent With Patient Critical Care time: I spent a total of [] minutes of critical care time on this patient's care today; this time is exclusive of procedural time. Quality VTE Deep Vein Thrombosis/Pulmonary Embolism Present on Admission: No
[2021-04-07 06:00] LABS: BUN Creatinine Ratio 22.1 (6-22); Blood Urea Nitrogen 21 mg/dL (7-17); Calcium 9.4 mg/dL (8.4-10.2); Carbon Dioxide 32 mmol/L (22-32); Chloride 105 mmol/L (98-107); Cholesterol 187 mg/dL (140-199); Estimated Glomerular Filt Rate 56.2 mL/min (>60); Glucose 97 mg/dL (80-110); HDL Cholesterol 95 mg/dL (40-60); HEMOLYSIS < 15 (0-50); LDL Cholesterol Calculated 81 mg/dL (<100); Potassium 3.6 mmol/L (3.4-5.1); Sodium 141 mmol/L (137-145); Triglycerides 57 mg/dL (35-150)
[2021-04-07 06:06] LABS: Hemoglobin A1C% w Est Avg Glu 5.4 % (4.0-6.0)
[2021-04-07 06:11] LABS: NT-proBNP (BNP-Adult 18+) 577 pg/mL (<450); Troponin I < 0.012 ng/mL (0.01-0.034)
[2021-04-07 06:31] LABS: Thyroid Stimulating Hormone 1.52 uIU/mL (0.47-4.68)
[2021-04-07] MEDS: ASPIRIN EC 81 MG TABLET PO (09:11)
[2021-04-07] MEDS: FUROSEMIDE 20 MG TABLET PO (09:11)
[2021-04-07] MEDS: ENOXAPARIN 40 MG/0.4 ML SYRINGE SUBCUT (09:11)
[2021-04-07] MEDS: CLOPIDOGREL 75 MG TABLET PO (09:11)
--- NOTE | 2021-04-07 09:40 | SLP.IPNOTE ---
Spoke to nursing at 940 who reported that pt is showing no s/sx of stroke. Nursing noted pt had apparently taken Ambien (new Rx) last night and her behavior may be due to a negative reaction. Pt's reports pt is back to baseline. Nursing to ask MD about cancelling the order.
--- NOTE | 2021-04-07 09:50 | PT.IIE ---
Medical History (Last Updated 04/07/21 @ 05:49 by Romina Stephens, [facility]) Bilateral lower extremity edema Dysphagia Hyperlipidemia Hypertension Memory loss Parkinsons disease PSP (progressive supranuclear palsy) Stroke Physical Therapy Inpatient Evaluation/Re-Eval M1 PT/OT-IP Prior Functional Status Start: 04/07/21 12:18 Freq: NEEDED Status: Active Protocol: Document 04/07/21 09:50 AB (Rec: 04/07/21 12:42 AB [email or web address]) Medical Review Prior Functional Status Medical History Reviewed Yes Communication able to answer questions but requires increase time to respond; pt has a flat affect Mobility and Gait spouse stated that he assists pt with bed mobility and mobility at home without AD but uses a SPC outdoors but spouse at the same time stated that pt is independent and able to clean the house and ambulate by herself. Social History Household Members spouse Living Arrangements House Number of Floors (Floors) One Floor Number of Stairs To Enter/Railing? no steps to enter Home Environment Standard Height Toilet,Tub/ Shower Home Equipment Straight Cane,Hand Held Shower ,Grab Bars Near Toilet Additional Social History Comment pt also has a step in tub shower has a toilet safety frame at home M2 PT-IP Current Condition Start: 04/07/21 12:18 Freq: NEEDED Status: Active Protocol: Document 04/07/21 09:50 AB (Rec: 04/07/21 12:42 AB [id number]) Physical Therapy Current Condition Current Condition Evaluation Date 04/07/21 Treatment Diagnosis r/o CVA; progressive supranuclear palsy; difficulty in walking Onset Date 04/07/21 M3 PT-IP Subjective Start: 04/07/21 12:18 Freq: NEEDED Status: Active Protocol: Document 04/07/21 09:50 AB (Rec: 04/07/21 12:42 AB [email or web address]) Subjective Physical Therapy Visit Type Type Initial Evaluation Visit Start Time 09:50 Visit Stop Time 10:40 Total Visit Minutes 50 Number of BOILER RELINER Visits 0 Physical Therapy Visit Comments Patient Comments agreeable to do PT Therapy Pain Assessment Pain Present Pain Present Denied Pain M4 PT-IP Mobility and Gait Start: 04/07/21 12:18 Freq: NEEDED Status: Active Protocol: Document 04/07/21 09:50 AB (Rec: 04/07/21 12:42 AB [email or web address]) PT-Bed Mobility Assessment Supine to Sit Supine to Sit Moderate Assistance,Maximum Assistance,1 Person Assistance PT-Transfer Assessment Sit to and From Stand Sit to and from Stand Moderate Assistance,Maximum Assistance,1 Person Assistance ,Use of Upper Extremities Equipment Transfer Assistive Device Gait Belt,Front Wheeled Walker Orthotic/Prosthetic Devices or Brace: No Transfers Transfer Destination Chair Transfer Technique ambulated Transfer Ability Level of Assist Moderate Assistance,1 Person Assistance,Use of Upper Extremities Comments Mobility Comments pt supine in bed. spouse in room and provided pt's PLOF and home set up. spouse stated that pt has been going to PT prior to hospitalization due to PSP. spouse stated that pt does not want to use a walker. pt agreed to do PT. complete supine to sit mod to max A and max cues. pt able to sit on EOB CGA. informed pt regarding use of walker at this time and agreed. completed sit to stand x 2 attempts mod A and max with initial standing position with LOB posteriorly requiring max A for steadiness . pt has increase forward head and kyphosis but has psoterior trunk LOB. increase rigidity/siffness of trunk noted. pt ambulated towards the chair using FWW mod to max A and max cues. pt sat on chair. MD came in and talked to pt's spouse. Assessed pt's ambulation without AD. completed sit to stand mod to max A. ambulated ASSIGNMENT OFFICER max A 15 ft. pt sat back on chair. MD stated that pt will be discharging today. informed spouse regarding pt's current mobility and agreed to do caregiver training. spouse stated that pt is weaker today. educated spouse on how to use safety belt and how to assist pt. spouse was able to put safety belt on pt and ambulated with pt in room using FWW. also educated spouse on how to assist pt without AD. spouse was able to assist pt with ambulation providing ASSIGNMENT OFFICER to pt . educated spouse on providing proper cues and instructions to pt and understood. pt sat on chair and positioned . call light and table placed within reach. Spouse agreed to use a FWW for home at this time and will obtain one for pt to use. pt and spouse without any other concerns. Gait Assessment Gait Gait Assistance Required: Moderate Assistance,Maximum Assistance,1 Person Assist Distance (Feet) 25 Able to Maintain Weight Bearing Status Yes During Gait Assistive Devices Assistive Device None,Gait Belt,Front Wheeled Walker Orthotic/Prosthetic Devices or Brace: No Gait Deviations General Gait Pattern Ataxic,Decreased Stride Length ,Decreased Feet Clearance, Flexed Trunk,Step-to Gait Factors Limiting Gait Function Factors Limiting Gait Function Decreased Activity Tolerance, Decreased Strength,Difficulty Following Directions,Limited Range of Motion,Poor Balance, Poor Safety Awareness PT-Balance Assessment Sitting Balance and Reactions Static Sitting Balance Ability Fair Dynamic Sitting Balance Ability Fair Standing Balance and Reactions Static Standing Balance Ability Poor Dynamic Standing Balance Ability Poor Device Used FWW M5 PT-IP Objective Assessments Start: 04/07/21 12:18 Freq: NEEDED Status: Active Protocol: Document 04/07/21 09:50 AB (Rec: 04/07/21 12:42 AB [email or web address]) Orientation Orientation/Cognition Level of Alertness Alert Orientation Name Safety Awareness Decreased Safety Awareness Memory Description Short Term Impaired Comments requires increase time to respond Gross Range of Motion Lower Extremity ROM Assessment Within Functional Limits Strength Lower Extremity Strength Hip 4-/5 Knee 4-/5 Muscle Tone Comments Muscle Tone Comments pt has flat facial affect and increase trunk rigidity M6 PT-IP Treatment Start: 04/07/21 12:18 Freq: NEEDED Status: Active Protocol: Document 04/07/21 09:50 AB (Rec: 04/07/21 12:42 AB [email or web address]) Physical Therapy Treatment Education Education Provided Safety M7 PT-IP Assessment and Plan Start: 04/07/21 12:18 Freq: NEEDED Status: Active Protocol: Document 04/07/21 09:50 AB (Rec: 04/07/21 12:42 AB [email or web address]) PT Summary Assessment and Plan Potential Rehabilitation Potential Good Status of Condition at Evaluation Evolving Summary Impairments Pain,ROM,Strength,Balance, Coordination,Sensation,Tone, Cognition,Bed Mobility, Transfers,Gait,Activity Tolerance Assessment Summary pt requiring mod to max A with mobility. caregiver training conducted and spouse was able to assist pt. recommending use of FWW at this time and spouse agreed and will obtain FWW for pt to use. Goals Bed Mobility Goal Standby Assistance Transfer Goal Standby Assistance,Front Wheeled Walker Gait Goal Standby Assistance,Front Wheel Walker Gait Distance 150 Other Goals bed mobility, transfers mod I ambulation without AD 100 ft SBA Days to Meet Goals 10 Frequency of Treatment Frequency Of Treatment Once a Day Treatment Plan Physical Therapy Treatment Plan Bed Mobility Training,Transfer Training,Gait Training, Therapeutic Exercise,Balance Retraining,Discharge Planning, Hot or Cold Pack,Neuromuscular Re-ed,Coordination Retraining ,Manual Therapy Recommendations To Nursing Amount of Assist Needed 1 Person Assist Discharge Recommendations PT Discharge Recommendations Home with 19/09 Assist Available,Outpatient PT Transportation Needs at Discharge Private Vehicle
--- NOTE | 2021-04-07 10:29 | P.DS_ITS ---
History of Present Illness History of Present Illness Date Patient Seen: 04/07/21 Time Patient Seen: 10:29 Chief complaint: Stroke Narrative: Per Romina Stephens, HORSES OR MULES TEAMSTER-BC: Maged Rhodes is a 85-year-old woman who a history of a stroke x 2, one in 2013 with left-sided deficits all of which resolved completely.? She has chronic lower extremity edema, reflux, hyperlipidemia, hypertension, PSP parkinsonian syndrome who presented to the ED via EMS with complaints of stroke-like symptoms started abruptly at 9:50 p.m. According to her while enjoying some ice cream with him she began slurring her speech, had significant right-sided facial paralysis, began dropping the ice cream bowl out of her right hand and was unable to lift up her right leg, and was unresponsive to him.?? Upon initial exam in ED she had improvement of the facial droop and partial paresthesia right side.?The patient had been multilingual will but do to her advanced Parkinson's/PSP she now speaks mostly in Arabic, which her spouse does not speak, she will often mix languages. Arabic language line as well as her were both used to facilitate interpretation due to Language barrier. Her notes that she has not had fevers, cough, chills, chest pain, palpitations, vomiting, diarrhea, recent illness injury or trauma.? She has had worsening cognitive deficits and confusion and was recently seen by her neurologist and had a brain MRI that showed only chronic minor ischemic changes, 3 weeks ago. Upon admit to the floor the patient's spouse notes that all of her symptoms have resolved and she is back at baseline.? It should be noted that the patient does have at baseline secondary to her PSP parkinsonian syndrome baseline tremors.? P atient's vitals upon admit she is slightly hypertensive temp 98.8?, BP 188/94, HR 68, RR 14 O2 saturation 100% on room air.? Patient's H&H 10.8/32.3, BUN 29, bicarb 36, creatinine 1.17, GFR 44.2, troponin is negative patient had a NIH of 5 in ED, is an NIH of 0 upon admit.? Patient's CTA of head neck were negative for any acute intracranial or carotid processes.? Patient's brain CT is negative for any acute intracranial processes, chest x-ray is negative for any acute cardiopulmonary processes.? I did request records from [facility].? The patient is resting comfortably in bed denies any pain discomfort any issues is alert to self and spouse, but does not appear to comprehend the situation.? Patient admitted for stroke. Discharge Providers Provider Date of admission: 04/07/21 00:11 Discharge Date: 04/07/21 Primary care physician: Kayla Foreman MD Consults: 04/07/21 00:26 Consult to Discharge Planning Routine Comment: Consult to Occupational Therapy Evaluate & Treat Comment: Physician Instructions: Evaluate and treat Consult to Physical Therapy Evaluate & Treat Comment: Physician Instructions: Evaluate and Treat Consult to Speech Therapy Evaluate & Treat Comment: Physician Instructions: Evaluate and treat Discharge provider: Jay Villafuerte DO Summary Hospital Course Discharge Diagnosis: 1. transient neurological deficits, TIA or possible medication reaction. 2. PSP (parkinsonian syndrome), acute on chronic, resulting in cognitive deficit, language barrier, and malnutrition as evidence by BMI of 19.4, acute on chronic, present on admission 3. Essential hypertension, acute on chronic, present on admission 4. Chronic peripheral edema, chronic, present on admission 5. Hyperlipidemia, chronic, present on admission 6. GERD, chronic, present on admission Hospital Course: Maged Rhodes is a 85-year-old woman who a history of a stroke x 2, one in 2013 with left-sided deficits all of which resolved completely.? She has chronic lower extremity edema, reflux, hyperlipidemia, hypertension, PSP parkinsonian syndrome who presented to the ED via EMS with complaints of stroke-like symptoms right-sided facial droop, right arm and right leg weakness, and worsened coginitive impairment unresponsive to spouse.? Her symptoms started a few minutes after taking 10 mg of Ambien for the 1st time which was prescribed recently for sleep. By the following morning, the patient had improved to her baseline status and had no new neurological defects. Given resolution of symptoms, prior strokes, and current medications MRI would not likely international exchange coordinator at this time and given patient's prior intolerance of MRI, and high likelihood that this was related to an adverse effect of Ambien, the decision was made to defer further imaging (MRI). Ambien was discontinued on discharge, and the patient's well surveying engineer was counseled on return instructions. She should follow-up with her primary care provider and neurologist as previously scheduled. No medication changes were necessary. Exam Vital Signs (past 8 hours): - 04/07/21 04:31 04/07/21 05:13 Temperature 97.8 F Pulse Rate 86 Respiratory Rate 18 Blood Pressure 148/52 H Pulse Oximetry 96 97 Oxygen Delivery Method Room Air Oxygen Flow Rate 0 Narrative Exam Narrative: General:? Patient is a well-developed, well-nourished elderly charming small framed female, in no distress at this time. Lungs:? Auscultation of all lung wooten are clear without adventitious sounds, wheezes, rhonchi, or rales. Cardio:? S1 & S2 with regular rate and rhythm without murmur, rubs, or gallops, no carotid bruit, no cardiac pulsations present. Abdomen:? Soft nontender, negative for organomegaly, or masses.? Bowel sounds are present in all 4 quadrants without guarding or rebound, no CVA tenderness. Musculoskeletal:? Muscle strength and tone are equal, no deformity, crepitus, effusions, cyanosis, or clubbing present. Bilateral +1 nonpitting edema? Full range of motion intact radial and pedal pulses are normal. Skin:? Warm dry and intact without rashes, ulcerations or petechiae.? Neuro:? Alert and orientated to self & spouse only, sensation to touch grossly intact, no gross deficits noted of cranial nerves. Objective Labs Result Diagrams: 04/06/21 23:15 04/07/21 05:03 Labs: Laboratory Results - last 24 hr 04/06/21 04/06/21 04/06/21 23:15 23:15 23:15 WBC 5.0 RBC 3.27 L Hgb 10.8 L Hct 32.3 L MCV 98.9 MCH 33.2 MCHC 33.5 RDW 13.6 Plt Count 195 Neut % (Auto) 45.7 L Lymph % (Auto) 44.2 H Door % (Auto) 9.0 Eos % (Auto) 0.6 L Baso % (Auto) 0.5 Neut # (Auto) 2300 Lymph # (Auto) 2200 Door # (Auto) 500 Eos # (Auto) 0 Baso # (Auto) 0 PT 10.6 INR 1.0 APTT 31 Sodium 139 Potassium 3.9 Chloride 104 Carbon Dioxide 36 H BUN 29 H Creatinine 1.17 H Estimated GFR 44.2 L BUN/Creatinine Ratio 24.8 H Glucose 93 Hemoglobin A1c Calcium 9.2 Magnesium Total Bilirubin 0.4 AST 23 ALT < 4 Alkaline Phosphatase 88 Total Creatine Kinase 69 CK-MB (CK-2) TNP CK-MB (CK-2) Rel Index TNP Troponin I < 0.012 NT-Pro-B Natriuret Pep Total Protein 7.3 Albumin 4.0 Globulin 3.3 Albumin/Globulin Ratio 1.2 Triglycerides Cholesterol LDL Cholesterol, Calc HDL Cholesterol TSH Urine Color Urine Appearance Urine pH Ur Specific [place] Urine Protein Urine Glucose (UA) Urine Ketones Urine Occult Blood Urine Nitrate Urine Bilirubin Urine Urobilinogen Ur Leukocyte Esterase Urine RBC Urine WBC Ur Squamous Epith Cells Amorphous Sediment Urine Bacteria Ur Culture Indicated? U Opiates 300ng/mL cut Ur Oxycodone Screen Urine Methadone Screen Ur Barbiturates Screen U Tricyclic Antidepress Ur Phencyclidine Scrn Ur Amphetamines Screen U Methamphetamines Scrn Ur MDMA Scrn (Ecstasy) U Benzodiazepines Scrn Urine Cocaine Screen U Marijuana (THC) Screen SARS-CoV-2 (PCR) 04/06/21 04/06/21 04/07/21 23:15 23:55 01:15 WBC RBC Hgb Hct MCV MCH MCHC RDW Plt Count Neut % (Auto) Lymph % (Auto) Door % (Auto) Eos % (Auto) Baso % (Auto) Neut # (Auto) Lymph # (Auto) Door # (Auto) Eos # (Auto) Baso # (Auto) PT INR APTT Sodium Potassium Chloride Carbon Dioxide BUN Creatinine Estimated GFR BUN/Creatinine Ratio Glucose Hemoglobin A1c Calcium Magnesium 2.4 H Total Bilirubin AST ALT Alkaline Phosphatase Total Creatine Kinase CK-MB (CK-2) CK-MB (CK-2) Rel Index Troponin I NT-Pro-B Natriuret Pep Total Protein Albumin Globulin Albumin/Globulin Ratio Triglycerides Cholesterol LDL Cholesterol, Calc HDL Cholesterol TSH Urine Color Urine Appearance Urine pH Ur Specific [place] Urine Protein Urine Glucose (UA) Urine Ketones Urine Occult Blood Urine Nitrate Urine Bilirubin Urine Urobilinogen Ur Leukocyte Esterase Urine RBC Urine WBC Ur Squamous Epith Cells Amorphous Sediment Urine Bacteria Ur Culture Indicated? U Opiates 300ng/mL cut Negative Ur Oxycodone Screen Negative Urine Methadone Screen Negative Ur Barbiturates Screen Negative U Tricyclic Antidepress Negative Ur Phencyclidine Scrn Negative Ur Amphetamines Screen Negative U Methamphetamines Scrn Negative Ur MDMA Scrn (Ecstasy) Negative U Benzodiazepines Scrn Negative Urine Cocaine Screen Negative U Marijuana (THC) Screen Negative SARS-CoV-2 (PCR) Negative 04/07/21 04/07/21 04/07/21 01:15 05:03 05:03 WBC RBC Hgb Hct MCV MCH MCHC RDW Plt Count Neut % (Auto) Lymph % (Auto) Door % (Auto) Eos % (Auto) Baso % (Auto) Neut # (Auto) Lymph # (Auto) Door # (Auto) Eos # (Auto) Baso # (Auto) PT INR APTT Sodium 141 Potassium 3.6 Chloride 105 Carbon Dioxide 32 BUN 21 H Creatinine 0.95 Estimated GFR 56.2 L BUN/Creatinine Ratio 22.1 H Glucose 97 Hemoglobin A1c 5.4 Calcium 9.4 Magnesium Total Bilirubin AST ALT Alkaline Phosphatase Total Creatine Kinase CK-MB (CK-2) CK-MB (CK-2) Rel Index Troponin I < 0.012 NT-Pro-B Natriuret Pep 577 H Total Protein Albumin Globulin Albumin/Globulin Ratio Triglycerides 57 Cholesterol 187 LDL Cholesterol, Calc 81 HDL Cholesterol 95 H TSH Urine Color Yellow Urine Appearance Sl cloudy Urine pH 7.5 Ur Specific [place] 1.015 Urine Protein Negative Urine Glucose (UA) Negative Urine Ketones Negative Urine Occult Blood 1+ H Urine Nitrate Negative Urine Bilirubin Negative Urine Urobilinogen 0.2 Ur Leukocyte Esterase Negative Urine RBC 0-1/hpf Urine WBC None seen Ur Squamous Epith Cells 1-5 /hpf Amorphous Sediment 1+ Urine Bacteria Many (>30) H Ur Culture Indicated? Cult not indicated U Opiates 300ng/mL cut Ur Oxycodone Screen Urine Methadone Screen Ur Barbiturates Screen U Tricyclic Antidepress Ur Phencyclidine Scrn Ur Amphetamines Screen U Methamphetamines Scrn Ur MDMA Scrn (Ecstasy) U Benzodiazepines Scrn Urine Cocaine Screen U Marijuana (THC) Screen SARS-CoV-2 (PCR) 04/07/21 05:03 WBC RBC Hgb Hct MCV MCH MCHC RDW Plt Count Neut % (Auto) Lymph % (Auto) Door % (Auto) Eos % (Auto) Baso % (Auto) Neut # (Auto) Lymph # (Auto) Door # (Auto) Eos # (Auto) Baso # (Auto) PT INR APTT Sodium Potassium Chloride Carbon Dioxide BUN Creatinine Estimated GFR BUN/Creatinine Ratio Glucose Hemoglobin A1c Calcium Magnesium Total Bilirubin AST ALT Alkaline Phosphatase Total Creatine Kinase CK-MB (CK-2) CK-MB (CK-2) Rel Index Troponin I NT-Pro-B Natriuret Pep Total Protein Albumin Globulin Albumin/Globulin Ratio Triglycerides Cholesterol LDL Cholesterol, Calc HDL Cholesterol TSH 1.52 Urine Color Urine Appearance Urine pH Ur Specific [place] Urine Protein Urine Glucose (UA) Urine Ketones Urine Occult Blood Urine Nitrate Urine Bilirubin Urine Urobilinogen Ur Leukocyte Esterase Urine RBC Urine WBC Ur Squamous Epith Cells Amorphous Sediment Urine Bacteria Ur Culture Indicated? U Opiates 300ng/mL cut Ur Oxycodone Screen Urine Methadone Screen Ur Barbiturates Screen U Tricyclic Antidepress Ur Phencyclidine Scrn Ur Amphetamines Screen U Methamphetamines Scrn Ur MDMA Scrn (Ecstasy) U Benzodiazepines Scrn Urine Cocaine Screen U Marijuana (THC) Screen SARS-CoV-2 (PCR) [facility] Medical History (Updated 04/07/21 @ 05:49 by ASHLEY Batres-) Bilateral lower extremity edema Dysphagia Hyperlipidemia Hypertension Memory loss Parkinsons disease PSP (progressive supranuclear palsy) Stroke Surgical History (Updated 04/07/21 @ 05:49 by IBETH Batres) History of back surgery History of hysterectomy Family History Daughter Cancer Social History household members: spouse Smoking Status: Never smoker alcohol intake: never Discharge Plan Discharge Plan Patient Disposition: Home Provider Discharge Comment: You were admitted to the hospital with stroke like symptoms. These were most likely due to an adverse medication reaction from ambien. It is possible you had a TIA or mini-stroke. As we discussed MRI will not change any management at this time as you are doing better this morning. Discharge orders & Medications Prescriptions: Continued Linzess 290 mcg capsule 290 mcg PO DAILY 0RF rasagiline [Azilect] 0.5 mg tablet 0.5 mg PO DAILY 0RF furosemide [Lasix] 20 mg tablet 20 mg PO DAILY 0RF polyethylene glycol 3350 [Miralax] 17 gram Powder In Packet 17 g PO DAILY 0RF carbidopa-levodopa [Sinemet] 25-100 mg tablet 25 - 100 tab PO QID 0RF metoprolol succinate 25 mg tablet extended release 24 hr 25 mg PO DAILY 0RF pantoprazole [Protonix] 40 mg tablet,delayed release (DR/EC) 40 mg PO BID 0RF aspirin-dipyridamole 25-200 mg capsule, ER multiphase 12 hr 25 - 200 cap PO BID 0RF montelukast 10 mg tablet 10 mg PO DAILY 0RF famotidine 20 mg tablet 20 mg PO DAILY 0RF gabapentin 100 mg capsule 100 mg PO TID 0RF simvastatin 40 mg tablet 40 mg PO DAILY 0RF lorazepam 0.5 mg Tablet 0.5 mg PO BEDTIME PRN (Reason: Anxiety) 0RF melatonin 5 mg Tablet 5 mg PO BEDTIME 0RF calcium carbonate [Tums] 300 mg (750 mg) Tablet,Chewable 1 tab PO DAILY 0RF Follow up/Referrals: Kayla Foreman MD [Primary Care Provider] - Diet/Activity/Treatments Diet: Diet as Tolerated Activity: As tolerated Visit Report/Discharge Packet Instructions: DI for Adverse Drug Reaction -- Other Discharge Data Primary Care Provider: Kayla Foreman Attending Provider: Romina Stephens VTE Deep Vein Thrombosis/Pulmonary Embolism Present on Admission: No
[2021-04-07] MEDS: RASAGILINE 0.5 MG 0.5 EACH PO (10:40)
--- NOTE | 2021-04-07 11:29 | OT.IPNOTE ---
Spoke to pt's as pt just speaks Luxem[place]ish and that prior he assisted with his needs at home and feels that she is back to her baseline. Pt's requesting that she gets orders to go back to having outpt PT, nursing notified. Suggested may be good to look into having pictures in addition to a assembly hand which her is already looking into to assist further to be able to communicate with her. NO charge.
--- NOTE | 2021-04-07 11:46 | PC.NURSE ---
Pt discharged with spouse to home. D/C info; meds, stroke signs, signs of medication reaction, gone over with Pt and spouse. Spouse ststes Pt is at baseline, all neuro checks point to Pt baseline being reached. Pt home meds returned to Pt from pharmacy.
--- NOTE | 2021-04-07 12:57 | CM.IDA ---
Initial DCP Assessment Note Pt is an 85 yo female, resident of [place], arrives after experiencing worsening cognitive deficits and confusion, admitted observation for stroke r/o, all symptoms had resolved upon admit to the floor Spouse eager to take patient home this morning PCP: Kayla Foreman Payer: [email or web address] Reviewed chart, met w/patient and spouse briefly, as Dr Villafuerte was ending his visit and Madelyn, PT was in the middle of hers. 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
== END 2021-04-07 11:52 | disposition home or self-care (01) ==
LOC: ED 23:51 → AC 04-07 00:12
PROVIDERS: Admitting Provider Nurse Practitioner Family; Emergency Provider Emergency Medicine; PCP Internal Medicine; Referring Provider Emergency Medicine; Visit Provider Nurse Practitioner Family
DX: R47.81 Slurred speech (principal); R29.706 NIHSS score 6; G20 Parkinson's disease; Z86.73 Personal history of transient ischemic attack (TIA), and cerebral infarction without residual deficits; I10 Essential (primary) hypertension; E78.5 Hyperlipidemia, unspecified; R60.0 Localized edema; Z20.822 Contact with and (suspected) exposure to COVID-19
CPT/HCPCS: 36415; 70450; 70496; 70498; 71045; 80048; 80053; 80061; 80305; 81001; 82550; 82553; 82962; 83036; 83735; 83880; 84443; 84484; 85025; 85610; 85730; 87635; 93005; 93010; 96360; 96372; 97162; 97530; 99285; C9803; G0378; J1650; Q9967